=== PATIENT | female | born 1955 | race Caucasian/White ===

== ENCOUNTER 2020-10-23 18:27 | Outpatient (REF) | payer SELFPAY ==
[2020-10-25 12:59] LABS: HSV 1 DNA Result Negative (Negative); HSV 2 DNA Result Negative (Negative)
== END 2020-10-23 18:28 | disposition home or self-care (01) ==
LOC: LBN 18:27
PROVIDERS: Visit Provider Physician Assistant Medical
DX: L98.8 Other specified disorders of the skin and subcutaneous tissue (principal); Z11.59 Encounter for screening for other viral diseases
CPT/HCPCS: 87529; 87070; 87205